=== PATIENT | female | born 1960 | race Caucasian/White ===

== ENCOUNTER 2019-07-30 10:19 | Observation (INO) | payer MEDICARE, OTHER ==
[~2019-07-30] VITALS: Ht 165.1 cm; Wt 71.3 kg
[2019-07-30] VITALS (19 sets, daily range): BP systolic 100–128; BP diastolic 60–80; PULSE 58–68; RESP 16–61; Ht 165.1 cm; Wt 71.3 kg
[2019-07-30] MEDS ORDERED: MIDAZOLAM 1 MG/ML 2 ML INJ ONE (12:41)
[2019-07-30] MEDS ORDERED: PROPOFOL 20 ML ONE ×3 (12:41→14:09)
[2019-07-30] MEDS ORDERED: CEFAZOLIN 1 GM INJ ONE (12:41)
[2019-07-30] MEDS ORDERED: FENTAnyl 50 MCG/ML VIAL ONE ×3 (12:41→14:16)
[2019-07-30] MEDS ORDERED: SUCCINYLCHOLINE CHLORIDE 100 MG/5 ML SYG IV ONE (12:42)
[2019-07-30] MEDS ORDERED: LIDOCAINE 100 MG SYRINGE ONE (12:42)
[2019-07-30] MEDS ORDERED: FENTAnyl 50 MCG/ML VIAL IV PRN ×3 (13:00)
[2019-07-30] MEDS ORDERED: LABETALOL HCL 20MG INJ IV PRN ×2 (13:00)
[2019-07-30] MEDS ORDERED: ONDANSETRON 4 MG INJ IV PRN ×3 (13:00→20:00)
[2019-07-30] MEDS ORDERED: ALBUTEROL 0.083% (NEB) 2.5 MG/3 ML AMP HHN PRN ×2 (13:00)
[2019-07-30] MEDS ORDERED: DIPHENHYDRAMINE 50 MG INJ IV PRN ×2 (13:00)
[2019-07-30] MEDS ORDERED: hydrALAzine 20 MG INJ IV PRN ×2 (13:00)
[2019-07-30] MEDS ORDERED: HYDROmorphONE 1 MG/5 ML IV SYRINGE IV PRN ×6 (13:00)
[2019-07-30] MEDS ORDERED: OXYCODONE/ACETAMINOPHEN (5/325) TAB PO PRN ×4 (13:00)
[2019-07-30] MEDS ORDERED: IPRATROPIUM (NEB) 0.5 MG/2.5 ML AMP HHN PRN ×2 (13:00)
[2019-07-30] MEDS ORDERED: EPHEDrine 25 MG/5 ML SYG IV PRN ×2 (13:00)
[2019-07-30] MEDS ORDERED: MEPERIDINE 25 MG INJ IV PRN ×2 (13:00)
[2019-07-30] MEDS ORDERED: LIDOCAINE 1.5%/EPI MPF (SDV) 30 ML VIAL ONE ×2 (13:20→13:27)
[2019-07-30] MEDS ORDERED: HYDROmorphONE 0.2 MG/ML PCA IV SCH ×2 (14:30→15:00)
[2019-07-30] MEDS ORDERED: NALOXONE (0.4 MG/ML) INJ IV PRN (15:00)
[2019-07-30] MEDS ORDERED: ZOLPIDEM 5 MG TAB PO PRN (20:00)
[2019-07-30] MEDS: LACTATED RINGER'S 1,000 ML IV SCH (20:21)
[2019-07-30] MEDS: METOCLOPRAMIDE 10 MG INJ IV PRN (22:22)
[2019-07-30] MEDS: CEFAZOLIN 2 GM/50 ML (PMX) 50 ML IVPB SCH (22:25)
[2019-07-31] VITALS: BP 107/56; PULSE 68; RESP 18
[2019-07-31] MEDS: LACTATED RINGER'S 1,000 ML IV SCH ×3 (00:22→10:52)
[2019-07-31 04:00] VITALS: BP 101/59; PULSE 65; RESP 18
[2019-07-31] MEDS: METOCLOPRAMIDE 10 MG INJ IV PRN ×2 (04:44→11:25)
[2019-07-31] MEDS: CEFAZOLIN 2 GM/50 ML (PMX) 50 ML IVPB SCH ×2 (06:01→13:14)
[2019-07-31 07:35] VITALS: BP 108/63; PULSE 65; RESP 18
[2019-07-31 09:00] VITALS: BP 102/55; PULSE 67; RESP 18
[2019-07-31] MEDS ORDERED: GABAPENTIN 100 MG CAP PO ONE (11:30)
[2019-07-31] MEDS ORDERED: DOCUSATE SODIUM 100 MG CAP PO ONE (11:30)
[2019-07-31 13:58] VITALS: BP 111/70; PULSE 77; RESP 18
== END 2019-07-31 16:35 | disposition home or self-care (01) ==
LOC: REC 10:19 → INTOOBSV 10:19 → EDSTATUS 12:30 → 2NE 19:05
PROVIDERS: ADMIT Obstetrics & Gynecology; ATTEND Obstetrics & Gynecology
DX: N81.10 Cystocele, unspecified (principal); N39.46 Mixed incontinence; N76.1 Subacute and chronic vaginitis
CPT/HCPCS: 57240; 80053; 81003; 85025; 85610; 85730; 88305; 93005; 96361; 96366; 96374; 96375; G0378; J0690; J1170; J2001; J2175; J2250; J2405; J2765; J3010; J7120; 96365; 96376; 99217